=== PATIENT | female | born 1995 | race Caucasian/White ===

== ENCOUNTER 2021-02-03 14:38 | Emergency (ER) | payer MEDICAID ==
--- NOTE | 2021-02-03 15:22 | EDM.PDOC ---
ED HPI GENERAL MEDICAL PROBLEM - General Chief Complaint: General Stated Complaint: 17 WEEKS PREG-POSS DEHYDRATION Time Seen by Provider: 02/03/21 15:17 Source of Information: Reports: Patient History Limitations: Reports: No Limitations - History of Present Illness INITIAL COMMENTS - FREE TEXT/NARRATIVE: pt has been vomiting gianna sat. She is feeling dry in the mouth and very tired. She finally did hold some fluids down this am. This is her first . She has only voided twice today/ Onset: Gradual Duration: Day(s): Location: Reports: Generalized Associated Symptoms: Reports: Weakness, Other (pt is aprox 17 weeks . 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: Musculoskeletal History: Reports: Fracture Neurological History: Reports: Concussion Psychiatric History: Reports: Anxiety - Infectious Disease History Infectious Disease History: Reports: Chicken Pox - Past Surgical History Endocrine Surgical History: Reports: Other (See Below) Other Endocrine Surgeries/Procedures: thyroid glossal duct cyst surgery Social & Family History - Tobacco Use Tobacco Use Status *Q: Never Tobacco User ED ROS GENERAL - Review of Systems Review Of Systems: See Below Constitutional: Reports: Weakness HEENT: Reports: No Symptoms Respiratory: Reports: No Symptoms Cardiovascular: Reports: No Symptoms Endocrine: Reports: No Symptoms GI/Abdominal: Reports: Nausea, Vomiting, Other ( 17 week preg. ) Musculoskeletal: Reports: No Symptoms Skin: Reports: No Symptoms ED EXAM, GENERAL - Physical Exam Exam: See Below Free Text/Narrative:: pt arrived with a history of vomiting and not holding anything down for the past 2-3 days. She is 17 weeks . General Appearance: Alert, No Apparent Distress Ears: Normal TMs Nose: Normal Inspection Throat/Mouth: Normal Inspection Head: Atraumatic Neck: Normal Inspection Respiratory/Chest: No Respiratory Distress Cardiovascular: Regular Rate, Rhythm GI/Abdominal: Soft, Non-Tender (Female) Exam: Other (pt has heart tones at 140. ) Rectal (Female) Exam: Deferred Back Exam: Normal Inspection Extremities: Normal Inspection Neurological: Alert, Oriented, Normal Cognition Course - Vital Signs Last Recorded V/S: Last Vital Signs Temp 36.6 C 02/03/21 15:02 Pulse 95 02/03/21 16:40 Resp 17 02/03/21 16:40 BP 118/64 02/03/21 16:40 Pulse Ox 98 02/03/21 16:40 - Orders/Labs/Meds Labs: Laboratory Tests 02/03/21 02/03/21 02/03/21 Range/Units 15:37 15:37 16:40 WBC 10.7 (4.5-11.0) K/uL RBC 4.37 (3.30-5.50) M/uL Hgb 12.7 (12.0-15.0) g/dL Hct 36.2 (36.0-48.0) % MCV 83 (80-98) fL MCH 29 (27-31) pg MCHC 35 (32-36) % Plt Count 265 (150-400) K/uL Neut % (Auto) 72.8 H (36-66) % Lymph % (Auto) 17.7 L (24-44) % Esmeralda % (Auto) 8.0 H (2-6) % Eos % (Auto) 1.2 L (2-4) % Baso % (Auto) 0.3 (0-1) % Sodium 138 L (140-148) mmol/L Potassium 3.6 (3.6-5.2) mmol/L Chloride 102 (100-108) mmol/L Carbon Dioxide 25 (21-32) mmol/L Anion Gap 14.6 H (5.0-14.0) mmol/L BUN 8 (7-18) mg/dL Creatinine 0.7 (0.6-1.0) mg/dL Est Cr Clr Drug Dosing 109.59 mL/min Estimated GFR (MDRD) > 60 (>60) Glucose 124 H (74-106) mg/dL Calcium 8.4 L (8.5-10.1) mg/dL Total Bilirubin 0.2 (0.2-1.0) mg/dL AST 36 (15-37) U/L ALT 68 (12-78) U/L Alkaline Phosphatase 95 (46-116) U/L Total Protein 6.6 (6.4-8.2) g/dL Albumin 2.7 L (3.4-5.0) g/dL Globulin 3.9 H (2.3-3.5) g/dL Albumin/Globulin Ratio 0.7 L (1.2-2.2) Urine Color Yellow (YELLOW) Urine Appearance Clear (CLEAR) Urine pH 6.0 (5.0-8.0) Ur Specific [place] >= 1.030 (1.008-1.030) Urine Protein Negative (NEGATIVE) mg/dL Urine Glucose (UA) Negative (NEGATIVE) mg/dL Urine Ketones Trace H (NEGATIVE) mg/dL Urine Occult Blood Negative (NEGATIVE) Urine Nitrite Negative (NEGATIVE) Urine Bilirubin Negative (NEGATIVE) Urine Urobilinogen 0.2 (0.2-1.0) EU/dL Ur Leukocyte Esterase Negative (NEGATIVE) Urine RBC Not seen (0-5) Urine WBC 0-5 (0-5) Ur Epithelial Cells Moderate Amorphous Sediment Not seen Urine Bacteria Moderate Urine Mucus Not seen Meds: Medications Discontinued Medications Generic Name Dose Route Start Last Admin Trade Name Freq PRN Reason Stop Dose Admin Sodium Chloride 1,000 mls @ 999 mls/hr 02/03/21 15:30 02/03/21 15:31 Normal Saline IV 999 mls/hr ASDIRECTED AYLIN Administration Sodium Chloride 1,000 mls @ 999 mls/hr 02/03/21 16:30 02/03/21 16:39 Normal Saline IV 999 mls/hr ASDIRECTED AYLIN Administration - Re-Assessments/Exams Free Text/Narrative Re-Assessment/Exam: 02/03/21 16:37 pt was bolused with 2 liters of fluid. Her lab work showed mild dehydration. pt will be sent home with subling zoforan. She states most of the time she does well but she has these episodes when she vomits alot. 02/03/21 16:37 02/03/21 16:38 02/03/21 16:47 Departure - Departure Time of Disposition: 17:35 Disposition: Home, Self-Care 01 Condition: Fair Clinical Impression: Dehydration, 17 weeks gestation of - Discharge Information Instructions: Dehydration, Adult, [id number] Referrals: PCP,None [Primary Care Provider] - Forms: ED Department Discharge Care Plan Goals: push fluids, zoforan 4 mg q6h prn for nausea. rtc if problems. Sepsis Event Note (ED) - Evaluation Sepsis Screening Result: No Definite Risk
[2021-02-03] MEDS ORDERED: Sodium Chloride 0.9% 1,000 ML IV SCH ×2 (15:30→16:30)
== END 2021-02-03 17:33 | disposition home or self-care (01) ==
LOC: JP.ED 14:38
DX: O99.282 Endocrine, nutritional and metabolic diseases complicating pregnancy, second trimester (principal); E86.0 Dehydration; O99.512 Diseases of the respiratory system complicating pregnancy, second trimester; J45.909 Unspecified asthma, uncomplicated; Z3A.17 17 weeks gestation of pregnancy
CPT/HCPCS: 36415; 80053; 81001; 85025; 99284; J7030

== ENCOUNTER 2022-12-17 18:55 | Emergency (ER) | payer MEDICAID ==
[2022-12-17] MEDS ORDERED: Sodium Chloride 0.9% 10 ML Syringe FLUSH PRN (19:27)
[2022-12-17] MEDS ORDERED: Sodium Chloride 0.9% 1,000 ML IV ONE (19:28)
== END 2022-12-17 21:11 | disposition home or self-care (01) ==
LOC: JP.ED 18:55
DX: O21.1 Hyperemesis gravidarum with metabolic disturbance (principal); Z86.16 Personal history of COVID-19; Z3A.15 15 weeks gestation of pregnancy
CPT/HCPCS: 96360; 99283; J3490; J7030

== ENCOUNTER 2024-08-12 02:25 | Emergency (ER) | payer MEDICAID ==
[2024-08-12 03:08] LABS: APPEARANCE,URINE CLEAR (CLEAR); BILIRUBIN,URINE NEGATIVE (NEGATIVE); COLOR,URINE YELLOW (YELLOW); GLUCOSE,URINE NEGATIVE (NEGATIVE); KETONES,URINE NEGATIVE (NEGATIVE); LEUKOCYTE ESTERASE,URINE NEGATIVE (NEGATIVE); NITRITE,URINE NEGATIVE (NEGATIVE); OCCULT BLOOD,URINE TRACE-LYSED (NEGATIVE); PROTEIN,URINE NEGATIVE (NEGATIVE); UROBILINOGEN,URINE 0.2 EU/dL (0.2-1.0)
[2024-08-12 03:14] LABS: AMORPHOUS SEDIMENT,URINE NOT SEEN; BACTERIA,URINE RARE; EPITHELIAL CELLS,URINE RARE; MUCUS,URINE NOT SEEN; RBC,URINE 0-5 (0-5); WBC,URINE 0-5 (0-5)
== END 2024-08-12 03:53 | disposition home or self-care (01) ==
LOC: JP.ED 02:25
DX: R39.15 Urgency of urination (principal); Z86.16 Personal history of COVID-19
CPT/HCPCS: 81001; 99283